=== PATIENT | male | born 1980 | race Caucasian/White ===

== ENCOUNTER 2019-02-25 07:28 | Emergency (ER) | payer BC ==
[2019-02-25] MEDS ORDERED: Morphine 4 MG/ML VIAL ONE (08:19)
[2019-02-25] MEDS ORDERED: Ondansetron PF 4 MG/2 ML Vial ONE (08:20)
[2019-02-25 08:51] LABS: #Eosinphils 0.2 thou/uL (0.0-0.7); #Lymphocytes 1.4 thou/uL (1.20-3.40); #Monocytes 1.1 thou/uL (0.11-0.59); %Basophils 0.1 % (0.0-1.0); %Eosinophils 1.6 % (0.0-10.0); %Lymphocytes 14.9 % (21.0-51.0); %Monocytes 11.4 % (0.0-10.0); Hemoglobin 10.4 g/dL (14.0-18.0); Mean Corpuscular HGB CONC 33.7 g/dL (32.0-36.0); Mean Platelet Volume 7.5 fL (7.4-10.4); Platelet Count 272 thou/uL (130-400); RBC Distribution Width 13.4 % (11.5-14.5); Red Blood Cell (RBC) Count 3.25 mill/uL (4.70-6.10); White Blood Cell (WBC) Count 9.7 thou/uL (4.8-10.8)
[2019-02-25 09:12] LABS: ALT (SGPT) 20 U/L (8-55); AST (SGOT) 34 U/L (5-34); Albumin 4.2 g/dL (3.5-5.0); Alkaline Phosphatase 54 U/L (40-150); Anion Gap 12 mmol/L (10-20); BUN (Urea Nitrogen) 12 mg/dL (8.9-20.6); Bilirubin, Total 2.1 mg/dL (0.2-1.2); Calc. Creatinine Clearance 0 mL/min (70-130); Calcium 9.1 mg/dL (7.8-10.44); Carbon Dioxide 26 mmol/L (22-29); Chloride 101 mmol/L (98-107); Estimated GFR-MDRD Greater than 90; Glucose 104 mg/dL (70-105); Potassium 3.5 mmol/L (3.5-5.1); Protein, Total 7.2 g/dL (6.0-8.3); Sodium 135 mmol/L (136-145)
== END 2019-02-25 10:53 | disposition home or self-care (01) ==
LOC: ERS 07:28
DX: R07.9 Chest pain, unspecified (principal); S80.11XA Contusion of right lower leg, initial encounter; K21.9 Gastro-esophageal reflux disease without esophagitis; F41.9 Anxiety disorder, unspecified; F32.9 Major depressive disorder, single episode, unspecified; Z87.891 Personal history of nicotine dependence; Z79.899 Other long term (current) drug therapy; Z79.01 Long term (current) use of anticoagulants; Z79.82 Long term (current) use of aspirin
CPT/HCPCS: 36415; 71275; 80053; 83880; 84484; 85025; 85610; 93005; 96374; 96375; J2270; J2405; Q9967

== ENCOUNTER → 2019-02-25 | Emergency (ER) | payer BC ==
[~2019-02-25] MED LIST: Iopamidol 370 76% 100 ML VIAL ONE
[2019-02-25 07:29] LABS: INR-International Normal Ratio 1.2; Prothrombin Time 15.4 SEC (12.0-14.7)
[2019-02-25 07:32] LABS: #Eosinphils 0.2 thou/uL (0.0-0.7); #Lymphocytes 1.6 thou/uL (1.20-3.40); #Monocytes 1.3 thou/uL (0.11-0.59); %Basophils 0.4 % (0.0-1.0); %Eosinophils 2.3 % (0.0-10.0); %Lymphocytes 17.5 % (21.0-51.0); %Monocytes 14.4 % (0.0-10.0); %Neutrophils 65.4 % (42.0-75.0); Mean Corpuscular HGB CONC 34.4 g/dL (32.0-36.0); Mean Corpuscular Hemoglobin 33.1 pg (27.0-31.0); Mean Corpuscular Volume 96.4 fL (78.0-98.0); Mean Platelet Volume 7.6 fL (7.4-10.4); Platelet Count 259 thou/uL (130-400); RBC Distribution Width 13.6 % (11.5-14.5); Red Blood Cell (RBC) Count 3.02 mill/uL (4.70-6.10); White Blood Cell (WBC) Count 9.2 thou/uL (4.8-10.8)
--- NOTE | 2019-02-25 09:43 | CT ---
CTA CHEST AND ABDOMEN UTILIZNG IV CONTRAST AORTIC DISSECTION PROTOCOL AND 3D REFORMATTED IMAGING: Date: 02/25/19 COMPARISON: Prior CT aortic dissection protocol dated 10/06/16. FINDINGS: Since the comparison examination, there has been interval distal aortic arch and proximal descending thoracic aorta repair. 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 Aortic valvular prosthesis again seen. Ectasia of the ascending aorta measuring 4.0 cm is stable. The aneurysmal dilatation of the descending thoracic aorta is slightly more pronounced than on the co mparison examination where the descending thoracic aorta at the level of the left atrium measures 5.1 cm, where previously it measured 4.1 cm. The thoracic aorta at the level of the hiatus measures 3.5 cm, which is stable. The abdominal aorta at the level of the celiac artery measures 3.1 cm, which is stable. The abdominal aorta at the level of the renal arteries measures 2.9 cm, which is stable. Again seen is a dissection flap extending from the aortic arch into the right brachiocephalic artery and proximal right common carotid artery and right subclavian artery. There is no occlusion of the fl aps. There is also a stable descending thoracic aortic dissection starting at approximately the mid t horacic aorta and down the abdominal aorta, terminating at the aortic bifurcation. Flow is present th rough both iliac vasculature. The renal arteries are patent. The celiac and SMA are opacified. The IM A is opacified. No focal pulmonary lesion is evident. No enlarged lymph nodes are grossly evident. No focal hepatic lesion is evident. The pancreas, adrenal glands, and kidneys are normal appearing. N o enlarged lymph nodes are evident. The spleen is normal appearing. The unopacified small and large b owel are unremarkable appearing. No acute osseous abnormality is evident. There is widening of the left fourth intercostal space likel y related to the patient's aortic aneurysmal repair. IMPRESSION: 1. 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 2. 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 Stable aneurysmal dilatation of the thoracic aorta at the level of the diaphragmatic hiatus. Stable ectasia of ascending aorta measuring 4.0 cm. 3. 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 4. Stable dissection flap involving the anterior aortic arch extending into the brachiocephalic yogi ry, proximal right common carotid artery, and proximal right subclavian artery without significant ev idence of thrombosis. POS: BH
--- NOTE | 2019-03-02 14:57 | EKG ---
Test Reason : Blood Pressure : / mmHG Vent. Rate : 078 BPM Atrial Rate : 078 BPM P-R Int : 168 ms QRS Dur : 104 ms QT Int : 436 ms P-R-T Axes : 073 104 106 degrees QTc Int : 497 ms Sinus rhythm with occasional Premature ventricular complexes Anterolateral infarct , age undetermined Diffuse T wave inversion most c/w prior Abnormal ECG Confirmed by MANUELITO LYNCH M.D. ([id number]), marketing editor MARCOS PICKARD ([id number]) on 03/02/2019 2:57:13 PM Referred By: Confirmed By:MANUELITO LYNCH M.D.
== END ==
LOC: ERS 05:56
DX: R07.9 Chest pain, unspecified (principal); M79.604 Pain in right leg; M79.605 Pain in left leg; K21.9 Gastro-esophageal reflux disease without esophagitis; F41.9 Anxiety disorder, unspecified; F32.9 Major depressive disorder, single episode, unspecified; Z87.891 Personal history of nicotine dependence; Z79.01 Long term (current) use of anticoagulants; Z79.82 Long term (current) use of aspirin; Z79.899 Other long term (current) drug therapy
CPT/HCPCS: 36415; 71275; 83880; 84484; 85025; 85610; 93005

== ENCOUNTER 2019-12-23 | Emergency (ER) | payer BC | END 2019-12-24 16:19 | DX: T42.4X2A Poisoning by benzodiazepines, intentional self-harm, initial encounter (principal); T42.8X2A Poisoning by antiparkinsonism drugs and other central muscle-tone depressants, intentional self-harm, initial encounter; K21.9 Gastro-esophageal reflux disease without esophagitis; F41.9 Anxiety disorder, unspecified; F32.9 Major depressive disorder, single episode, unspecified; F17.290 Nicotine dependence, other tobacco product, uncomplicated; Z79.899 Other long term (current) drug therapy ==

== ENCOUNTER 2024-02-03 01:31 | Observation (INO) | payer BC ==
[2024-02-03 02:29] VITALS: BMI 22.8
[2024-02-03] MEDS ORDERED: Ondansetron PF 4 MG/2 ML Vial IVP PRN (02:59)
[2024-02-03] MEDS ORDERED: Acetaminophen 500 MG TAB PO PRN (02:59)
[2024-02-03] MEDS ORDERED: Nitroglycerin 0.4 MG TAB (25 Tab Bottle) SL PRN (03:06)
[2024-02-03] MEDS ORDERED: Lorazepam 2 MG/ML VIAL SLOW IVP PRN (03:40)
[2024-02-03 04:02] LABS: #Basophils 0.05 10x3/uL (0.0-0.2); %Basophils 0.7 % (0.0-1.0); %Eosinophils 2.2 % (0.0-10.0); %Lymphocytes 32.3 % (21.0-51.0); %Monocytes 10.5 % (0.0-10.0); Hematocrit 39.1 % (42.0-52.0); Hemoglobin 13.6 g/dL (14.0-18.0); Mean Corpuscular HGB CONC 34.8 g/dL (32.0-36.0); Mean Corpuscular Hemoglobin 32.4 pg (27.0-31.0); Mean Corpuscular Volume 93.1 fL (78.0-98.0); Platelet Count 173 10x3/uL (130-400); RBC Distribution Width 12.2 % (11.5-14.5)
[2024-02-03 04:19] LABS: Anion Gap 14 mmol/L (10-20); BUN (Urea Nitrogen) 15 mg/dL (8.9-20.6); Calc. Creatinine Clearance 150 mL/min (70-130); Calcium 8.3 mg/dL (7.8-10.44); Carbon Dioxide 25 mmol/L (22-29); Chloride 105 mmol/L (98-107); Estimated GFR 117; Glucose 101 mg/dL (70-105); Magnesium 1.8 mg/dL (1.6-2.6); Potassium 3.6 mmol/L (3.5-5.1); Sodium 140 mmol/L (136-145)
[2024-02-03 07:27] LABS: Troponin I 0.036 ng/mL (< 0.028)
[2024-02-03] MEDS: Folic Acid 1 MG TAB PO SCH (08:49)
[2024-02-03] MEDS: Aspirin 81 mg Enteric Coated Tablet PO SCH (08:49)
[2024-02-03] MEDS: Thiamine 100 MG TAB PO SCH (08:49)
[2024-02-03] MEDS: Multivit, Therapeutic 1 TAB PO SCH (08:49)
[2024-02-03] MEDS ORDERED: Enoxaparin 80 MG (0.8 mL) SYRINGE SC SCH ×2 (09:00→13:00)
[2024-02-03 09:23] VITALS: BP 109/61; TEMP 97.9
== END 2024-02-03 10:00 | disposition left against medical advice (07) ==
LOC: 2SW 02:11
PROVIDERS: ADMIT Internal Medicine; ATTEND Internal Medicine
DX: R07.9 Chest pain, unspecified (principal); R00.2 Palpitations; F41.9 Anxiety disorder, unspecified; F32.A Depression, unspecified; I27.20 Pulmonary hypertension, unspecified; F10.90 Alcohol use, unspecified, uncomplicated; Z88.1 Allergy status to other antibiotic agents; Z88.8 Allergy status to other drugs, medicaments and biological substances; Z79.899 Other long term (current) drug therapy; Z95.4 Presence of other heart-valve replacement; Z79.82 Long term (current) use of aspirin
CPT/HCPCS: 36415; 80048; 83735; 84484; 85025; G0378